=== PATIENT | male | born 1960 | race Caucasian/White ===

== ENCOUNTER 2019-12-11 15:01 | Emergency (ER) | payer OTHER, BC, SELFPAY ==
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
[2019-12-11 15:13] VITALS: BP 134/64; PULSE 77; RESP 16; TEMP 37.2; O2SAT 100
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
== END 2019-12-11 16:24 | disposition home or self-care (01) ==
PROVIDERS: Emergency Provider Nurse Practitioner
DX: M54.2 Cervicalgia (principal); S02.2XXA Fracture of nasal bones, initial encounter for closed fracture; V83.0XXA Driver of special industrial vehicle injured in traffic accident, initial encounter; Y99.0 Civilian activity done for income or pay; Z86.73 Personal history of transient ischemic attack (TIA), and cerebral infarction without residual deficits; N40.0 Benign prostatic hyperplasia without lower urinary tract symptoms
CPT/HCPCS: 70160; 72050; 99214; G0463

== ENCOUNTER 2020-08-01 13:40 | Outpatient (CLI) | payer BC, SELFPAY | END 2020-08-01 13:41 | disposition home or self-care (01) | LOC: ANHCOVIDVC 13:40 | DX: Z23 Encounter for immunization (principal) | CPT/HCPCS: 0001A; 91300 ==

== ENCOUNTER 2020-08-22 13:36 | Outpatient (CLI) | payer BC, SELFPAY | END 2020-08-22 13:37 | disposition home or self-care (01) | LOC: ANHCOVIDVC 13:36 | DX: Z23 Encounter for immunization (principal) | CPT/HCPCS: 0002A; 91300 ==

== ENCOUNTER 2022-08-02 15:05 | Outpatient (CLI) | payer BC, SELFPAY ==
--- NOTE | ~2022-08-02 | CT_ITS ---
CT Scan of the Chest without Contrast: Clinical Indication: Current smoker, lung cancer screening Technique: Contiguous sections were acquired throughout the chest without intravenous contrast. Dose reduction technique was used on this scan by utilizing automated exposure control and iterative recon struction technique. The dose-length product (DLP) was 87.52 mGy-cm. Findings: There is no evidence of any significant mediastinal, hilar or axillary lymphadenopathy. Coronary tere ry calcifications are present. There are atherosclerotic calcifications of the aorta. There is no evidence of pleural or pericardial effusion. There is a 1.1 cm left lower lobe pulmonary nodule, with subtle central calcification (series 4 image 83). There is linear bibasilar scarring or atelectasis otherwise. Images through the upper abdomen reveal no abnormalities. Impression: Lung-RADS 2: Benign appearance. 12 month follow-up screening CT advised. 1.1 cm left lower lobe pulmonary nodule with central calcification, consistent with benign granulomat ous nodule. Reviewed, dictated and finalized at location . Impression: Lung-RADS 2: Benign appearance. 12 month follow-up screening CT advised. 1.1 cm left lower lobe pulmonary nodule with central calcification, consistent with benign granulomatous nodule.
== END 2022-08-02 15:06 | disposition home or self-care (01) ==
PROVIDERS: PCP Family Medicine; Visit Provider Physician Assistant
DX: Z12.2 Encounter for screening for malignant neoplasm of respiratory organs (principal); F17.200 Nicotine dependence, unspecified, uncomplicated; R91.1 Solitary pulmonary nodule
CPT/HCPCS: 71271

== ENCOUNTER 2022-08-13 02:27 | Day surgery (SDC) | payer BC, SELFPAY ==
[2022-08-04 14:38] VITALS: BMI 23.1
--- NOTE | 2022-08-13 09:16 | P.PNAN_ITS ---
Anes - Initial Pre Proc Eval Procedure: Operation Date: 08/13/22 13:00 Proposed Procedures p Screening Colonoscopy - Mitchell Castillo MD Date/Time: 08/13/22 09:16 Surgeon: Mitchell Castillo MD Pre Op Diagnosis: neoplasm screening Patient Data Age: 62 Gender: M Height: 1.8 m Weight: 75 kg Allergies Allergy/AdvReac Type Severity Reaction Status Date / Time No Known Allergies Allergy Verified 08/13/22 11:45 Home Medications Medication Instructions Recorded Confirmed Type aspirin,buffered (calcium 325 mg PO DAILY 05/02/19 08/05/22 History carbonate-magnesium) 325 mg tablet nicotine 21 mg/24 hr daily 1 patch transdermal DAILY #14 ea 07/20/22 08/05/22 Rx transdermal patch Patient hx anesthesia problems: none Family hx anesthesia problems: none Results Review: All pre-operative results and documents have been reviewed as part of the pre- operative evaluation. [facility] Past Medical History Medical History (Updated 08/13/22 @ 12:01 by Mitchell Castillo MD) Irregular heart beat TIA (transient ischemic attack) 2009 Family History Family History Other Family history of cardiovascular disease Social History Social History (Updated 07/20/22 @ 13:37 by Kailee Ho MA) Smoking packs per day: 1 Smoking cigarettes per day: 20.0 Years smoked: 15 Smoking pack-years: 15.00 Smoking status: Former smoker Tobacco type: cigarettes Alcohol intake: current Drinks per week: 1 Alcohol use details: 2-6 beers a month Substance use: never Substance use type: does not use Living arrangements: with family Occupation/Education: retired Gender identity (if verbalized by the patient): Male Sexual Orientation (if Verbalized by the Patient): Straight or Heterosexual Spiritual care concerns: No Anes - Eval Final PreProcedure Day of Procedure 08/13/22 09:16 Patient weight: normal Heart: regular rate and rhythm Lungs: clear to auscultation and normal air movement Airway: Mallampati scale class II Neurological: alert and oriented Last oral intake: >/= 8 hours ASA classification: III Emergent: no Anesthetic plan: proceed Anesthesia type and monitoring: general GIVS and standard monitoring Results Review: All pre-operative results and documents have been reviewed as part of the pre- operative evaluation. Informed Consent: The patient's anesthetic plan and its attendant risks and benefits were discussed with the patient/family/POA. Questions were solicited and answers provided to the satisfaction of the patient/family/POA.
[2022-08-13 11:50] VITALS: BP 126/78; PULSE 71; RESP 20; TEMP 36.6; O2SAT 100; BMI 22.4
--- NOTE | 2022-08-13 12:00 | P.HP_ITS ---
History of Present Illness History of Present Illness Consent: Risks, benefits, and alternatives have been discussed and questions answered. Patient agrees to proceed with procedure. Chief complaint: neoplasm screening Narrative: Mike Delgado is a 62 year old male Presents for screening colonoscopy. Patient's current weight appetite bowel movements are normal. Patient denies abdominal pain. He has had no bleeding. Family history noncontributory. Previ ous colonoscopy 2008 was unremarkable. Review of Systems Review of Systems: Review of systems noncontributory. [facility] Past Medical History Medical History (Updated 08/13/22 @ 12:01 by Mitchell Castillo MD) Irregular heart beat TIA (transient ischemic attack) 2009 Family History Family History Other Family history of cardiovascular disease Social History Social History (Updated 07/20/22 @ 13:37 by Kailee Ho MA) Smoking packs per day: 1 Smoking cigarettes per day: 20.0 Years smoked: 15 Smoking pack-years: 15.00 Smoking status: Former smoker Tobacco type: cigarettes Alcohol intake: current Drinks per week: 1 Alcohol use details: 2-6 beers a month Substance use: never Substance use type: does not use Living arrangements: with family Occupation/Education: retired Gender identity (if verbalized by the patient): Male Sexual Orientation (if Verbalized by the Patient): Straight or Heterosexual Spiritual care concerns: No Meds Home Medications and Allergies Home Medications Medication Instructions Recorded Confirmed Type aspirin,buffered (calcium 325 mg PO DAILY 05/02/19 08/05/22 History carbonate-magnesium) 325 mg tablet nicotine 21 mg/24 hr daily 1 patch transdermal DAILY #14 ea 07/20/22 08/05/22 Rx transdermal patch Allergies Allergy/AdvReac Type Severity Reaction Status Date / Time No Known Allergies Allergy Verified 08/13/22 11:45 Vital Signs Vital Signs - 24 hr 08/13/22 11:50 Temperature 97.8 F Pulse Rate 71 Respiratory Rate 20 Blood Pressure 126/78 Pulse Oximetry 100 Oxygen Delivery Room Air Exam Narrative: Physical exam reveals patient to be alert. Vital signs stable. HEENT exam is unremarkable. Patient is anicteric. Lungs are clear to auscultation and percussion. Heart is without murmur or extra sounds. Abdomen bowel sounds present soft nontender with no organomegaly. Digital external rectal exam is normal. Assessment and Plan Assessment and plan (1) Encounter for screening colonoscopy: Code(s): Z12.11 - Encounter for screening for malignant neoplasm of colon Status: Acute Assessment and Plan: Patient presents for screening colonoscopy. He appears to be at average risk for colon polyps. Further recommendations may be given after endoscopy.
[2022-08-13] MEDS: LACTATED RINGERS 1,000 ML 150 ML IV CONT (12:02)
[2022-08-13 13:20] VITALS: BP 109/66; PULSE 59; RESP 15; O2SAT 100
[2022-08-13 13:30] VITALS: BP 109/73; PULSE 60; RESP 19; O2SAT 99
[2022-08-13 13:40] VITALS: BP 117/73; PULSE 60; RESP 25; O2SAT 98
== END 2022-08-13 13:58 | disposition home or self-care (01) ==
PROVIDERS: PCP Family Medicine; Visit Provider Internal Medicine Gastroenterology
PROC: 0DJD8ZZ Inspection of Lower Intestinal Tract, Via Natural or Artificial Opening Endoscopic (ICD-10-PCS; CPT 45378; principal; 2022-08-13 13:00)
DX: Z12.11 Encounter for screening for malignant neoplasm of colon (principal); K64.8 Other hemorrhoids; Z79.82 Long term (current) use of aspirin; Z86.73 Personal history of transient ischemic attack (TIA), and cerebral infarction without residual deficits; Z87.891 Personal history of nicotine dependence
CPT/HCPCS: 45378; J2704; J7120